=== PATIENT | female | born 1960 | race African-American/Black ===

== ENCOUNTER 2024-06-16 19:18 | Emergency (ER) | payer OTHER ==
[~2024-06-16] VITALS: Ht 160 cm; Wt 91.6 kg
[2024-06-16] MEDS ORDERED: ORPHENADRINE CITRATE 30 MG/ML AMPUL IM STA (20:58)
[2024-06-16] MEDS ORDERED: DEXAMETHASONE SODIUM PHOSPHATE 4 MG/ML VIAL IM STA (20:59)
[2024-06-16] MEDS ORDERED: ORPHENADRINE CITRATE 30 MG/ML AMPUL ONE (21:19)
[2024-06-16] MEDS ORDERED: DEXAMETHASONE SODIUM PHOSPHATE 4 MG/ML VIAL ONE (21:19)
== END 2024-06-16 22:00 | disposition home or self-care (01) ==
LOC: ER 19:21
DX: M25.562 Pain in left knee (principal); M62.838 Other muscle spasm; Z88.6 Allergy status to analgesic agent; Z88.0 Allergy status to penicillin